=== PATIENT | female | born 1995 | race Caucasian/White ===

== ENCOUNTER 2022-06-25 12:42 | Emergency (ER) | payer BC ==
[~2022-06-25] VITALS: Ht 165.1 cm; Wt 65.8 kg
[2022-06-25 12:59] VITALS: BP 115/85
--- NOTE | 2022-06-25 13:28 | NUR ---
PT AMB TO BED 7
--- NOTE | 2022-06-25 13:30 | NUR ---
27YO FEMALE PT C/O SOB AND COUGH X1WEEK. MOIST NON PRODUCTIVE COUGH PRESENT. CLEAR BENY LUNG SOUNDS. +SICK FAMILY AT HOME W/ S/S. DENIES RELIEF AFTER ALBUTEROL INHALER. NOTES CHEST AND ABD SORENESS SECONDARY FROM COUGH. PT AAOX4, RESPIRATIONS EVEN AND UNLABORED. 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 HX:ASTHMA ALLERGIES:MORPHINE
--- NOTE | 2022-06-25 13:38 | NUR ---
Adelina barlow in ED - 06/25/22 at 1339 by [facility] pt swabbed for covid(terrence) and flu. walked and handed to lab
--- NOTE | 2022-06-25 13:45 | NUR ---
pt swabbed for covid(terrence) and flu. walked and handed to lab
--- NOTE | 2022-06-25 14:00 | NUR ---
X-Ray at bedside.
[2022-06-25] MEDS ORDERED: ALBU0.0912 IH (15:05)
[2022-06-25] MEDS ORDERED: DEXAMETHASONE 10 MG/ML VIAL IM ONE (15:05)
[2022-06-25] MEDS ORDERED: DEXAMETHASONE 10 MG/ML VIAL ONE (15:07)
[2022-06-25 15:15] VITALS: BP 127/86
--- NOTE | 2022-06-25 15:15 | NUR ---
Patient discharged with v/s stable. Written and verbal after care instructions FOR ASTHMA given and explained. Patient alert, oriented and verbalized understanding of instructions. Ambulatory with . All questions addressed prior to discharge. ID band removed. Patient advised to follow up with PMD. Rx of ALBUTEROL SULFATE given. Opportunity to ask questions provided and answered.
--- NOTE | 2022-06-25 15:21 | NUR ---
The patient's care was reviewed and supervised by [place] 05 NATIVIDAD, RN.
== END 2022-06-25 15:15 | disposition home or self-care (01) ==
LOC: MED 12:42
DX: J20.9 Acute bronchitis, unspecified (principal); Z20.822 Contact with and (suspected) exposure to COVID-19
CPT/HCPCS: 71045; 81025; 87426; 87804; 96372; 99284; J1100